=== PATIENT | female | born 1970 | race African-American/Black ===

== ENCOUNTER 2017-11-13 08:57 | Day surgery (SDC) | payer BC ==
[2017-11-13] MEDS ORDERED: IRON SUCROSE INJECTION 200 MG in SODIUM CHLORIDE 100 ML IVPB ONE (09:30)
[2017-11-13 11:21] VITALS: BP 142/86; PULSE 74; TEMP 98; BMI 28.4
== END 2017-11-13 11:00 | disposition home or self-care (01) ==
LOC: FINFUSION 08:57 → FM/S 09:01 → FINFUSION 11:00
PROVIDERS: ATTEND Internal Medicine Hematology & Oncology
PROC: 3E033GC Introduction of Other Therapeutic Substance into Peripheral Vein, Percutaneous Approach (ICD-10-PCS; principal; 2017-11-13)
DX: D64.9 Anemia, unspecified (principal)
CPT/HCPCS: 96365; J1756

== ENCOUNTER 2017-11-20 08:56 | Day surgery (SDC) | payer BC ==
[2017-11-20] MEDS ORDERED: IRON SUCROSE INJECTION 200 MG in SODIUM CHLORIDE 100 ML IVPB ONE (09:15)
[2017-11-20 10:29] VITALS: TEMP 98.2
[2017-11-20 10:31] VITALS: BP 120/70; PULSE 68
== END 2017-11-20 11:15 | disposition home or self-care (01) ==
LOC: FINFUSION 08:56 → FM/S 09:02 → FINFUSION 11:15
PROVIDERS: ATTEND Internal Medicine Hematology & Oncology
PROC: 3E033GC Introduction of Other Therapeutic Substance into Peripheral Vein, Percutaneous Approach (ICD-10-PCS; principal; 2017-11-20)
DX: D64.9 Anemia, unspecified (principal)
CPT/HCPCS: 96365; J1756

== ENCOUNTER 2017-11-27 09:10 | Day surgery (SDC) | payer BC ==
[2017-11-27] MEDS ORDERED: IRON SUCROSE INJECTION 200 MG in SODIUM CHLORIDE 100 ML IVPB ONE (10:00)
[2017-11-27 14:42] VITALS: BP 154/76; PULSE 74; TEMP 98.6; BMI 27.7
== END 2017-11-27 12:50 | disposition home or self-care (01) ==
LOC: FINFUSION 09:10 → FM/S 09:29 → FINFUSION 12:50
PROVIDERS: ATTEND Internal Medicine Hematology & Oncology
PROC: 3E033GC Introduction of Other Therapeutic Substance into Peripheral Vein, Percutaneous Approach (ICD-10-PCS; principal; 2017-11-27)
DX: D64.9 Anemia, unspecified (principal)
CPT/HCPCS: 96365; J1756

== ENCOUNTER 2017-12-04 08:35 | Day surgery (SDC) | payer BC ==
[2017-12-04] MEDS ORDERED: IRON SUCROSE INJECTION 200 MG in SODIUM CHLORIDE 100 ML IVPB ONE (09:00)
[2017-12-04 10:05] VITALS: BP 137/90; PULSE 68; TEMP 98
== END 2017-12-04 10:06 | disposition home or self-care (01) ==
LOC: FINFUSION 08:35 → FM/S 08:39 → FINFUSION 10:06
PROVIDERS: ATTEND Internal Medicine Hematology & Oncology
PROC: 3E033GC Introduction of Other Therapeutic Substance into Peripheral Vein, Percutaneous Approach (ICD-10-PCS; principal; 2017-12-04)
DX: D64.9 Anemia, unspecified (principal)
CPT/HCPCS: 96365; J1756

== ENCOUNTER 2018-05-14 08:33 | Day surgery (SDC) | payer BC ==
[2018-05-14] MEDS ORDERED: IRON SUCROSE INJECTION 200 MG in SODIUM CHLORIDE 100 ML IVPB ONE (08:45)
[2018-05-14 09:03] VITALS: TEMP 98.2
[2018-05-14 09:48] VITALS: BP 125/84; PULSE 70
== END 2018-05-14 09:50 | disposition home or self-care (01) ==
LOC: FINFUSION 08:33 → FM/S 08:34 → FINFUSION 09:50
PROVIDERS: ATTEND Internal Medicine Hematology & Oncology
PROC: 3E033GC Introduction of Other Therapeutic Substance into Peripheral Vein, Percutaneous Approach (ICD-10-PCS; principal; 2018-05-14)
DX: E61.1 Iron deficiency (principal)
CPT/HCPCS: 96365; J1756

== ENCOUNTER 2018-05-28 08:06 | Day surgery (SDC) | payer BC ==
[2018-05-28] MEDS ORDERED: IRON SUCROSE INJECTION 200 MG in SODIUM CHLORIDE 100 ML IVPB ONE (08:30)
[2018-05-28 08:40] VITALS: TEMP 97.6
[2018-05-28 09:29] VITALS: BP 138/86; PULSE 76
== END 2018-05-28 09:33 | disposition home or self-care (01) ==
LOC: FM/S 08:06 → FINFUSION 08:06
PROVIDERS: ATTEND Internal Medicine Hematology & Oncology
DX: E61.1 Iron deficiency (principal)
CPT/HCPCS: 96365; J1756

== ENCOUNTER 2018-06-11 08:26 | Day surgery (SDC) | payer BC ==
[2018-06-11] MEDS ORDERED: IRON SUCROSE INJECTION 200 MG in SODIUM CHLORIDE 100 ML IVPB ONE (09:00)
[2018-06-11 09:23] VITALS: BP 123/81; PULSE 74; TEMP 98
== END 2018-06-11 11:00 | disposition home or self-care (01) ==
LOC: FINFUSION 08:26 → FM/S 08:27 → FINFUSION 11:00
PROVIDERS: ATTEND Internal Medicine Hematology & Oncology
DX: E61.1 Iron deficiency (principal)
CPT/HCPCS: 96365; J1756